=== PATIENT | female | born 1965 | race Asian ===

== ENCOUNTER → 2023-11-24 13:12 | Outpatient (REF) | payer BC, SELFPAY | LOC: WDC 13:12 | PROVIDERS: ATTENDING PHYSICIAN Obstetrics & Gynecology; FAMILY PHYSICIAN Family Medicine | DX: Z12.31 Encounter for screening mammogram for malignant neoplasm of breast (principal) | CPT/HCPCS: 77063; 77067 ==

== ENCOUNTER → 2024-12-21 15:40 | Outpatient (REF) | payer BC, SELFPAY | LOC: WDC 15:40 | PROVIDERS: ATTENDING PHYSICIAN Obstetrics & Gynecology; FAMILY PHYSICIAN Family Medicine | DX: Z12.31 Encounter for screening mammogram for malignant neoplasm of breast (principal) | CPT/HCPCS: 77063; 77067 ==